=== PATIENT | male | born 1975 | race Caucasian/White ===

== ENCOUNTER 2021-08-03 09:00 | Outpatient (RCR) | payer OTHER, SELFPAY ==
--- NOTE | 2021-05-27 15:06 | PTOPEVAL ---
PHYSICAL THERAPY EVALUATION AND PLAN OF CARE Thank you for referring Jovan Saldivar to [facility].? The patient is scheduled to be seen for therapy? 2x/week for 4-8 weeks. Please review, sign, date and return this plan of care [place]. I agree with and certify that the following plan of care is medically necessary. 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 He does have a prosthetic and has used it for a couple of hours a day and standing in the kitchen making breakfast. Prior Level of Function Home Setting Home Type House,Single Level Environmental Barriers Railing, None,Stairs, 2-4 Living Situation With Relatives Mobility Assistive Devices (Used Last 3 Wheelchair, Manual Months) Pain Score 0: Self Report Lower Extremity Muscle Strength Testing Hip Strength Left Hip Flexion Strength 5 Normal Hip Extension Strength 3- Fair - Hip Abduction Strength 3- Fair - Knee Strength Left Knee Flexion Strength 4+ Good + Knee Extension Strength 5 Normal Balance Assessment 5 Time Sit to Stand Time in Seconds 16.22 5 Time Sit to Stand Comments with cues to correct foot Query Text:Normative Data: If Greater positioning Than 15 Seconds, 74% Increase Risk for 17.66 seconds without any cues Recurrent Falls --both tests done using hands to assist in standing Gait Assessment Gait Assessment Ambulation Assistive Devices Walker, Wheeled Orthotic/Prosthetic Devices Left Lower Extremity Prosthesis Weight Bearing Status - Left Full Weight Bearing Status - Right Full Ambulation Distance 175 Query Text:(Feet) Ambulation Destination In Gym Ambulation Ability Contact Guard Additional Ambulation Comments with wheelchair follow Gait Pattern Assessment Gait Pattern Ataxic Gait Gait Pattern Observed Decreased Stride Length - Right,Decreased Weight Shift - Left,Uneven Zully Other Gait Observations patient is not used to putting weight through or using the
--- NOTE | 2021-06-01 08:55 | PCPTNOTE ---
Patient did not show up for scheduled appointment this date. Called and left message about missed appointment. Reminded of upcoming appointment on , 06/03/21 @ 9:00. Also informed Pt this is his first N/S.
--- NOTE | 2021-06-24 08:26 | PTOPEVAL ---
PHYSICAL THERAPY PROGRESS REPORT Thank you for referring Jovan Saldivar to [facility].? The patient is scheduled to be seen for therapy? 2x/week for 4 weeks. Please review, sign, date and return this plan of care [place]. I agree with and certify that the following plan of care is medically necessary. 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 He feels more Family comfortable standing and has less pain when standing. He is still standing and making breakfast and he feels like he can stand longer without needing to hold onto something . Pain Assessment Timing of Pain Assessment Timing of Pain Assessment Assessment Self Report Self Report Pain Level 0 Pain Score Pain Score 0: Self Report Lower Extremity Muscle Strength Testing Hip Strength Left Hip Flexion Strength 5 Normal Hip Extension Strength 4- Good - Hip Abduction Strength 3+ Fair + Knee Strength Left Knee Flexion Strength 5 Normal Knee Extension Strength 5 Normal Balance Assessment Time Up Go (TUG) Timed Up and Go Test (TUG) (Seconds) 30 Assistive Devices Walker, Wheeled 5 Time Sit to Stand Time in Seconds 20.2 5 Time Sit to Stand Comments with hands on arm rests Query Text:Normative Data: If Greater 1month ago: 16.22 seconds with Than 15 Seconds, 74% Increase Risk for hands on arm rests Recurrent Falls Gait Assessment Gait Assessment Ambulation Assistive Devices Walker, Wheeled Gait Pattern Assessment Gait Pattern Antalgic Gait Other Gait Observations left knee mildly flexed during gait (does not fully extend) 2 Minute Walk Total Distance Walked (feet) 216 2 Minute Walk Gait Speed Score (feet/ 1.80 second) 2 Minute Walk Test Comments some increase in left knee pain when walking with WW; PT Clinical Summary Jovan is a 45 yo male s/p left transtibial amputation. Jovan is progressing well toward meeting his functional goals of being able to walk independently and to have normal strength of left LE. I recommend we continue our
--- NOTE | 2021-07-22 09:28 | PTOPEVAL ---
PHYSICAL THERAPY PROGRESS REPORT Thank you for referring Jovan Saldivar to [facility].? The patient is scheduled to be seen for therapy? 2x/week for 4 weeks. Please review, sign, date and return this plan of care [place]. I agree with and certify that the following plan of care is medically necessary. 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 Does not have any pain to report - states that he has been feeling good just does not have long lengths to walk at home. Assessment Self Report Self Report Pain Level 0 Lower Extremity Muscle Strength Testing Hip Strength Left Hip Flexion Strength 5 Normal Hip Extension Strength 4 Good Hip Abduction Strength 4 Good Knee Strength Left Knee Flexion Strength 5 Normal Knee Extension Strength 5 Normal Balance Assessment South Balance Assessment Sitting to Standing Independent w/Hands Unsupported Stance Ability Safely- 2 minutes Sitting Unsupported, Feet on Floor Safely- 2 minutes Standing to Sitting Assist, Control w/Hands Transfer Ability Safely, Hand Use Unsupported Stance- Eyes Closed Supervision, 10 seconds Unsupported Stance- Feet Together Independent, 1 minute Reaching Forward while Standing Safely, 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 Object From Floor Requires Supervision Look Behind Shoulder - Standing Turns Sideways Only Turning 360 Degrees Supervision/Verbal Cues Unsupported Stance, Alternating Feet on 2 Steps w/Minimum Assist Stair Unsupported Tandem Stance Balance Lost- Step/Stand Unilateral Leg Stance Unable,assist to not fall SOUTH Balance Evaluation Total Score (/56 32 points) 5 Time Sit to Stand Time in Seconds 13 5 Time Sit to Stand Comments with arm rests Query Text:Normative Data: If Greater 1month ago: 20.2seconds with Than 15 Seconds, 74% Increase Risk for arm rests Recurrent Falls 2month ago: 16.22 seconds with hands on arm rests Gait Assessment Gait Assessment Ambulation Assistive Devices Cane, Large Base Quad Ambulation Distance 50x2 Query Text:(Feet) Ambulation Destination In Gym Ambulation Ability Contact Guard Additional Ambulation Comments with wheelchair follow Gait Pattern Assessment Other Gait Observations improving ability to weight
--- NOTE | 2021-08-03 09:21 | PCPTNOTE ---
Patient arrived to therapy session with reports of blisters on stump that were found on Monday, has been working on healing and drying them out and was unsure on being treated today. Once examining noted pink with open sore on medial distal location of stump which indicated to hold of treatment this date till healing was complete. Patient would benefit from more weight bearing exercises at this time of treatment so therapist cancelled today's appointment and educated on monitoring healing process for appointment. Measurements taken of the 3 different locations of wounds. Medial distal: 4cm with pink appearance and .8cm open sore. Lateral superior: 2.3cm flat and dry with dark red. Lateral inferior: 1.7cm flat and dry with dark red.
--- NOTE | 2021-08-05 09:04 | PCPTNOTE ---
Patient called & cancelled scheduled appointment this date due to blister on residual limb.
--- NOTE | 2021-08-10 09:37 | PCPTNOTE ---
Patient called about continued blisters on stump and was advised to keep prothesis off with non-weight bearing until blisters of fully healed. After talking with patient over the phone educated on bed exercises to perform at home and will re-assess next week. Has follow-up appointment with Jh on .
--- NOTE | 2021-08-16 09:45 | PCPTNOTE ---
Patient called & cancelled scheduled appts for this week due to continuing to have an open sore on the residual limb. He is being re-evaluated by advertising operations coordinator on 08/26/21. We will re-evaluate for PT on 08/30/21. Hold chart until that time.
--- NOTE | 2021-08-17 09:06 | PCPTNOTE ---
Patient called & cancelled scheduled appointment this date due to still having open area on residual limb, & waiting to go to instructional support services director, to hav it checked.
--- NOTE | 2021-08-23 15:12 | PCPTNOTE ---
This treatment is being continued on visit number [id number]. Please see documentation on both accounts to view progress. Completed interventions, outcomes, and problems have been marked as Inactive to facilitate the copying of the Care plan routine for recurring accounts.
== END 2021-08-23 11:25 | disposition home or self-care (01) ==
LOC: ANHPT 09:00
PROVIDERS: PCP Family Medicine; Visit Provider Family Medicine
DX: Z47.81 Encounter for orthopedic aftercare following surgical amputation (principal); Z89.619 Acquired absence of unspecified leg above knee
CPT/HCPCS: 97110; 97112; 97116; 97162; 97530

== ENCOUNTER 2021-11-24 14:00 | Outpatient (RCR) | payer OTHER, SELFPAY ==
--- NOTE | 2021-08-23 15:12 | PCPTNOTE ---
The treatment documented on this account is a continuation of the treatment documented on visit number [id number]. Please see documentation on both accounts to view progress. The Plan of Care has been transitioned and updated within the new V#. I have addressed and agree with the discipline specific Problems, Interventions, and Goals for the current certification period. Completed interventions, outcomes, and problems have been marked as Inactive to facilitate the copying of the Care plan routine for recurring accounts.
--- NOTE | 2021-08-30 10:31 | PTOPEVAL ---
PHYSICAL THERAPY PROGRESS REPORT Thank you for referring Jovan Saldivar to [facility].? The patient is scheduled to be seen for therapy?2x/week for 4 weeks. Please review, sign, date and return this plan of care [place]. I agree with and certify that the following plan of care is medically necessary. 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 He has Family not been able to be at appointments for several weeks due to some blisters on the end of residual limb. He was working with spinal surgeon on getting shrinkers and making sure the fit of the prosthetic is appropriate. Observation of the residual limb today: very well healed and soft scaring. He is telling me about some tenderness over skyler prominence with prosthetic in standing and he attributes this to having less swelling in the leg so the skyler prominence has less protection. We may need to add some sort of cushion and build up callus. Pain Assessment Timing of Pain Assessment Timing of Pain Assessment Assessment Self Report Self Report Pain Level 0 Pain Score Pain Score 0: Self Report Balance Assessment 5 Time Sit to Stand Time in Seconds 13 5 Time Sit to Stand Comments with arm rests Query Text:Normative Data: If Greater 2month ago: 20.2seconds with Than 15 Seconds, 74% Increase Risk for arm rests Recurrent Falls 3month ago: 16.22 seconds with hands on arm rests Gait Assessment Gait Assessment Ambulation Assistive Devices Walker, Wheeled Weight Bearing Status - Left Full Weight Bearing Status - Right Full Ambulation Speed (feet/second) 1.9 Ambulation Destination In Gym Additional Ambulation Comments decreased weight shift to the left LE with increased reliance on WW in left stance Stair Climbing Assessment Stair Climbing Assessment Stair Climbing Assistive Devices Railings Technique Alternating Steps Stair Climbing Direction
--- NOTE | 2021-09-07 08:44 | PCPTNOTE ---
Patient called & cancelled scheduled appointment this date due to still having blisters on residual limb.
--- NOTE | 2021-09-08 15:59 | PCPTNOTE ---
Patient called & cancelled scheduled appointment this date due to blister still not healed.
--- NOTE | 2021-09-23 09:55 | PTOPEVAL ---
PHYSICAL THERAPY PROGRESS REPORT Thank you for referring Jovan Saldivar to [facility].? The patient is scheduled to be seen for therapy? 2x/week for 4 weeks. Please review, sign, date and return this plan of care [place]. I agree with and certify that the following plan of care is medically necessary. 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 Family Blisters are resolved with changing the fit of the prosthetic. He is back to wearing the prosthetic up to 4 hours a day and is working back up to a full day. Feels like he needs more balance in order to be able to start walking with a cane at home. Balance Assessment Naylor Balance Assessment: Comments previous score: 5 Time Sit to Stand Time in Seconds 19 without arm rests Gait Assessment Ambulation Assistive Devices Cane Additional Ambulation Comments walked inside // bars with straight cane without need to use // bars 6 Minute Walk Total Distance (feet) 833 6 Minute Walk Gait Speed Score 2.31ft/second 2 Minute Walk Total Distance Walked (feet) 143 2 Minute Walk Gait Speed Score (feet/ 1.19 second) 2 Minute Walk Test Comments with [facility] PT Clinical Summary Jovan is a 46 yo male s/p left transtibial amputation for gait training with prosthesis. He continues to progress very well to meet his functional goals despite a pause interruption in care to allow a blister to heal. He is still appropriate to continue gait training with a cane. He continues to require skilled physical therapy for gait training, balance training, and strength training.
--- NOTE | 2021-10-21 10:33 | PTOPEVAL ---
PHYSICAL THERAPY PROGRESS REPORT Thank you for referring Jovan Saldivar to [facility].? The patient is scheduled to be seen for therapy? 2x/week for 4 weeks. Please review, sign, date and return this plan of care [place]. I agree with and certify that the following plan of care is medically necessary. 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 Family Last week he drove his truck to a doctor's appt and was able to get out of the truck and get his own walker out and walked into the doctor's office. He has been practicing walking [place] [facility] [place] He does get tired using it but is doing well. He feels his biggest limitation right now is endurance and standing balance without use UE. Balance Assessment Naylor Balance Assessment 44/56 Comments 1month ago: 37/56 Time Up Go (TUG) Timed Up and Go Test (TUG) (Seconds) 16 Assistive Devices Cane, Large Base Quad 5 Time Sit to Stand Time in Seconds 12.5 5 Time Sit to Stand Comments WITHOUT arm rests Query Text:Normative Data: If Greater 1month ago without armrests: Than 15 Seconds, 74% Increase Risk for 19seconds Recurrent Falls 2month ago: 13seconds with arm rests 4month ago: 20.2seconds with arm rests 5month ago: 16.22 seconds with hands on arm rests Gait Assessment Gait Assessment Ambulation Assistive Devices None Orthotic/Prosthetic Devices Left Lower Extremity Prosthesis Weight Bearing Status - Left Full Weight Bearing Status - Right Full Ambulation Speed (feet/second) 2.2 Ambulation Destination In Gym Ambulation Ability Standby Assistance 6 Minute Walk Total Distance (feet) 765 6 Minute Walk Gait Speed Score (feet/ 2.12 second) 6 Minute Gait Comments 1month ago: 833ft (2.31ft/ second) with WW 2month ago: 808ft (2.24 ft/sec ) wiht WW Stair Climbing Assessment Stair Climbing Assessment Stair Climbing Assistive Devices Railings Orthotic/Prosthetic Devices Left L
--- NOTE | 2021-11-18 09:46 | PTOPEVAL ---
PHYSICAL THERAPY PROGRESS REPORT Thank you for referring Jovan Saldivar to [facility].? The patient is scheduled to be seen for therapy? 1x/week for 6 weeks. Please review, sign, date and return this plan of care [place]. I agree with and certify that the following plan of care is medically necessary. 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 Recently developed a small scab on the bottom of residual limb. watching as it heals. Has been using cane to walk inside and outside of his house. Walking through grass and hills. The prosthetic is on at least 10-12 hours a day. Around the 10-12 hours aiden he starts to experience a lot of pain across the front of the residual limb. 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 Object From Floor Supervision Look Behind Shoulder - Standing Shifts Weight Well Turning 360 Degrees Turns slowly, but safely Unsupported Stance, Alternating Feet on (I)- 8 Steps in > 20 secs Stair Unsupported Tandem Stance Small Step- 30 seconds Unilateral Leg Stance Lifts Leg/Unable to Hold SOUTH Balance Evaluation Total Score (/56 45 points) Comments 1month ago: 44/56 2month ago: 37/56 Time Up Go (TUG) Timed Up and Go Test (TUG) (Seconds) 16 Assistive Devices Cane, Large Base Quad 5 Time Sit to Stand Time in Seconds 12.5 5 Time Sit to Stand Comments WITHOUT arm rests Query Text:Normative Data: If Greater 1month ago without armrests: Than 15 Seconds, 74% Increase Risk for 12.5 seconds Recurrent Falls 2month ago without armrests:
--- NOTE | 2021-11-29 07:34 | PCPTNOTE ---
This treatment is being continued on visit number [id number]. Please see documentation on both accounts to view progress. Completed interventions, outcomes, and problems have been marked as Inactive to facilitate the copying of the Care plan routine for recurring accounts.
== END 2021-11-28 23:59 | disposition home or self-care (01) ==
LOC: ANHPT 14:00
PROVIDERS: PCP Family Medicine; Visit Provider Family Medicine
DX: Z47.81 Encounter for orthopedic aftercare following surgical amputation (principal); Z89.619 Acquired absence of unspecified leg above knee
CPT/HCPCS: 97110; 97112; 97116; 97162; 97530; 97761

== ENCOUNTER 2021-12-27 10:30 | Outpatient (RCR) | payer OTHER, SELFPAY ==
--- NOTE | 2021-11-29 07:34 | PCPTNOTE ---
The treatment documented on this account is a continuation of the treatment documented on visit number [id number]. Please see documentation on both accounts to view progress. The Plan of Care has been transitioned and updated within the new V#. I have addressed and agree with the discipline specific Problems, Interventions, and Goals for the current certification period. Completed interventions, outcomes, and problems have been marked as Inactive to facilitate the copying of the Care plan routine for recurring accounts.
--- NOTE | 2021-12-27 11:06 | PTOPEVAL ---
PHYSICAL THERAPY DISCHARGE NOTE Thank you for referring Jovan Saldivar to [facility]. Please review, sign, date and return this plan of care [place]. I agree with and certify that the following plan of care is medically necessary. 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 States that he recently had an appt with office manager receptionist about the fit of his socket and there is enough difference in the size from original measurement to now that they think they will need to make a new socket. That is in process. States that he can walk around for a couple of hours and then he has to stop and take the prosthetic off because he is sweating, but otherwise he has no significant concern or difficulty. Balance Assessment Naylor Balance Assessment 45/56 Comments 2month ago: 44/56 3month ago: 37/56 Time Up Go (TUG) Timed Up and Go Test (TUG) (Seconds) 13 Assistive Devices None 5 Time Sit to Stand Time in Seconds 12 5 Time Sit to Stand Comments 1month ago without arm rests: Query Text:Normative Data: If Greater 12seconds Than 15 Seconds, 74% Increase Risk for 2month ago without armrests: Recurrent Falls 12.5 seconds 3month ago without armrests: 19seconds Gait Assessment 6 Minute Walk Total Distance (feet) 883 6 Minute Walk Gait Speed Score (feet/ 2.45 second) 6 Minute Gait Comments with straight cane 1month ago: 765ft 2month ago: 765ft 3month ago: 833ft (2.31ft/ second) with WW 4month ago: 808ft (2.24 ft/sec ) wiht WW Stair Climbing Assessment Stair Climbing Assessment Stair Climbing Assistive Devices Railings Orthotic/Prosthetic Devices Left Lower Extremity Prosthesis Number of Steps Climbed (Steps) 4 Number of Repetitions (Repetitions) 4 Technique Alte
== END 2021-12-27 14:06 | disposition home or self-care (01) ==
LOC: ANHPT 10:30
PROVIDERS: PCP Family Medicine; Visit Provider Family Medicine
DX: Z47.81 Encounter for orthopedic aftercare following surgical amputation (principal); Z89.619 Acquired absence of unspecified leg above knee
CPT/HCPCS: 97110; 97112; 97116; 97162; 97530